=== PATIENT | female | born 1975 | race Hispanic/Latino ===

== ENCOUNTER 2018-08-02 17:33 | Emergency (ER) | payer OTHER ==
--- OUTSIDE RECORDS SUMMARY | 2018-08-02 17:35 | XMS REPORT ---
Author Author [facility] Address Unknown Phone Unavailable Care Team Providers Care Printer Assistant Name Role Phone ELMER ROQUE Unavailable Unavailable Problems This patient has no known problems. Allergies, Adverse Reactions, Alerts This patient has no known allergies or adverse reactions. Medications This patient has no known medications. Results Test Description Test Time Test Comments Text Results Atomic Results Result Comments CHEST 2 VIEWS [place] [address] Patient Name: JELANI SAHU MR #: [id number] : 1975 Age/Sex: 41/F Req #: [id number] Adm Physician: Ordered by: ELMER ROQUE MD Report #: [id number] Location: RAD Room/Bed: Procedure: [id number] DX/CHEST 2 VIEWS Exam Date: 02/07/17 Exam Time: 1128 REPORT STATUS: Signed PROCEDURE: Frontal and lateral views of the chest. COMPARISON: None. INDICATIONS: CHEST, BACK PAIN FINDINGS: Lines/tubes: None. Lungs: The lungs are well inflated and clear. There is no evidence of pneumonia or pulmonary edema. Pleura: There is no pleural effusion or pneumothorax. Heart and mediastinum: The heart and the mediastinum are normal. Bones: No acute bony abnormality. Degenerative changes of the thoracic spine. IMPRESSION: No acute radiographic abnormality. Dictated by: Js Flaherty M.D. on 02/07/2017 at 12:18 Electronically approved by: Js Flaherty M.D. on 02/07/2017 at 12:18 Dictated By: JS FLAHERTY MD 17 Transcribed By: BELLE on 02/07/171217 COPY TO: ELMER DENT MD
--- NOTE | 2018-08-02 17:38 | NUR ---
Pt stated she her doctor told her to go to [facility]
== END 2018-08-02 17:46 | disposition short-term general hospital (02) ==
LOC: ER 17:33
DX: R69 Illness, unspecified (principal)